=== PATIENT | male | born 1960 | race African-American/Black ===

== ENCOUNTER 2019-07-15 08:06 | Inpatient (IN) ==
[2019-07-15] MEDS ORDERED: DEXTROSE 10% 25 GM/250 ML BAG IV PRN (08:45)
[2019-07-15] MEDS ORDERED: DEXTROSE 50% 25 GM/50 ML VIAL IV PRN (08:45)
[2019-07-15] MEDS ORDERED: CEFUROXIME INJ 1,500 MG in SYRINGE 1 EACH IV ONE (08:45)
[2019-07-15] MEDS ORDERED: GLUCAGON 1 MG VIAL IM PRN ×2 (08:45)
[2019-07-15] MEDS ORDERED: ZALEPLON 5 MG CAPSULE PO PRN (08:49)
[2019-07-15 09:18] LABS: Basophils % 0.6 % (0.0-0.8); Eosinophils # 0.1 10*3/uL (0.0-0.87); Eosinophils % 1.5 % (0.00-10.9); Hematocrit 40.5 VOL% (42.0-52.0); Hemoglobin 12.8 GM/DL (14.0-18.0); Lymphocytes # 0.7 10*3/uL (1.4-4.0); Lymphocytes % 21.2 % (21.2-54.2); Mean Corpuscular HGB Conc 31.6 GM/DL (32-36); Mean Corpuscular Volume 90.2 FL (87-102); Mean Platelet Volume 11.9 FL (9.6-12.0); Monocytes % 4.9 % (1.7-12.7); Neutrophils % 71.8 % (38.7-73.9); Platelet Count 138 T/CUMM (130-400); Red Blood Count 4.49 MC/CUMM (3.8-5.5); White Blood Count 3.4 T/CUMM (4-12)
[2019-07-15 09:40] LABS: Albumin 3.2 G/DL (3.4-5.0); Calcium 9.3 MG/DL (8.5-10.1); Osmolality,Calculated 279.3 MOS/KG (273-304); Total Protein 7.2 G/DL (6.4-8.3)
[2019-07-15 10:04] LABS: ABG Base Excess -1.6 MMOL/L (-2.5-2.5); ABG Oxygen Saturation 94.7 % (95-100); ABG PCO2 35.6 MM HG (35-48); ABG PH 7.409 (7.35-7.45); ABG PO2 75.4 MM HG (80-95); ABG TCO2 19.8 MMOL/L (23-27)
[2019-07-15] MEDS: CHLORHEXIDINE 0.12% ORAL RINSE 60 ML BOTTLE SWISH/SPIT SCH ×2 (10:13→21:45)
[2019-07-15] MEDS: ASPIRIN EC 81 MG TABLET PO SCH (10:13)
[2019-07-15] MEDS: SODIUM CHLORIDE 0.9% 1,000 ML IV SCH (10:13)
[2019-07-15] MEDS: LISINOPRIL 20 MG TABLET PO SCH (10:13)
[2019-07-15] MEDS: MULTIVITAMIN (CENTRUM) TABLET PO SCH (10:13)
[2019-07-15] MEDS: METOPROLOL SUCCINATE XL 25 MG TABLET PO SCH (10:14)
[2019-07-15] MEDS: CHLORHEXIDINE 4% SOLN 118 ML BOTTLE TOP SCH ×2 (16:57→21:45)
[2019-07-16] MEDS ORDERED: PAPAVERINE 60 MG/2 ML VIAL ONE (04:22)
[2019-07-16] MEDS ORDERED: VANCOMYCIN 1,000 MG VIAL ONE ×2 (04:22→17:57)
[2019-07-16] MEDS: CHLORHEXIDINE 4% SOLN 118 ML BOTTLE TOP SCH (04:30)
[2019-07-16] MEDS ORDERED: FAMOTIDINE 20 MG TABLET PO ONE (06:00)
[2019-07-16] MEDS ORDERED: CEFUROXIME INJ 1,500 MG in SYRINGE 1 EACH IV ONE (06:00)
[2019-07-16] MEDS ORDERED: DIAZEPAM 5 MG TABLET PO ONE (06:00)
[2019-07-16] MEDS: METOPROLOL SUCCINATE XL 25 MG TABLET PO SCH ×2 (06:00→09:00)
[2019-07-16] MEDS: LISINOPRIL 20 MG TABLET PO SCH ×2 (06:01→09:00)
[2019-07-16] MEDS ORDERED: HEPARIN/NACL 0.9% 2 UNITS/ML 500 ML IV ONE (06:02)
[2019-07-16] MEDS ORDERED: MIDAZOLAM 10 MG/2 ML VIAL ONE ×2 (06:03→19:08)
[2019-07-16] MEDS ORDERED: ePHEDrine 50 MG/ML AMP ONE (06:03)
[2019-07-16 07:45] LABS: ABG Base Excess -1.9 MMOL/L (-2.5-2.5); ABG HCO3 22.8 MMOL/L (20-26); ABG Oxygen Saturation 99.1 % (95-100); ABG PCO2 38.4 MM HG (35-48); ABG PH 7.382 (7.35-7.45); ABG TCO2 20.4 MMOL/L (23-27); Glucose Heart Surgery 80 MG/DL (74-106); Hemoglobin Heart Surgery 11.7 G/DL (14.0-18.0); Ionized Calcium Arterial 1.24 MMOL/L (1.21-1.46); PCO2 Patient Temp Arterial 38.4 MMHG; PH Patient Temp Arterial 7.382; Patient Temperature 37 CELCIUS; Potassium Heart/CVR 4.5 MMOL/L (3.5-5.1); Sodium Heart/CVR 136 MMOL/L (135-145)
[2019-07-16] MEDS ORDERED: VANCOMYCIN 500 MG VIAL ONE (08:13)
[2019-07-16] MEDS ORDERED: PHENYLEPHRINE DRIP 40 MG/250 ML PREMIX IV ONE (08:22)
[2019-07-16] MEDS ORDERED: SODIUM BICARBONATE 50 MEQ/50 ML VIAL IV ONE ×4 (08:22→19:08)
[2019-07-16] MEDS ORDERED: NITROPRUSSIDE 50 MG/2 ML VIAL ONE (08:22)
[2019-07-16] MEDS ORDERED: CALCIUM CHLORIDE 1,000 MG/10 ML SYRINGE IV ONE (08:22)
[2019-07-16] MEDS ORDERED: POTASSIUM CHLORIDE RIDER 100 ML IV ONE (08:23)
[2019-07-16] MEDS: ASPIRIN EC 81 MG TABLET PO SCH (09:00)
[2019-07-16] MEDS: CHLORHEXIDINE 0.12% ORAL RINSE 60 ML BOTTLE SWISH/SPIT SCH ×2 (09:00→20:23)
[2019-07-16] MEDS: SODIUM CHLORIDE 0.9% 1,000 ML IV SCH (09:00)
[2019-07-16] MEDS: MULTIVITAMIN (CENTRUM) TABLET PO SCH (09:00)
[2019-07-16 09:21] LABS: Hematocrit Heart Surgery 23.6 PERCENT (42-52); Hemoglobin Heart Surgery 7.6 G/DL (14.0-18.0); PCO2 Patient Temp Venous 30.2 MM HG; PH Patient Temp Venous 7.455; PO2 Patient Temp Venous 40.7 MM HG; Potassium Heart/CVR 5.1 MMOL/L (3.5-5.1); VBG HCO3 22.6 MEQ/L (24-28); VBG Oxygen Saturation 85.5 %; VBG PCO2 36.6 MMHG (41-51); VBG PH 7.397; VBG PO2 53.4 MMHG (17-40)
[2019-07-16 09:57] LABS: Hematocrit Heart Surgery 30.4 PERCENT (42-52); Hemoglobin Heart Surgery 9.8 G/DL (14.0-18.0); PCO2 Patient Temp Venous 30.4 MM HG; PH Patient Temp Venous 7.49; PO2 Patient Temp Venous 40.4 MM HG; Potassium Heart/CVR 5.5 MMOL/L (3.5-5.1); VBG Base Excess 0.4 MEQ/L (0-4); VBG HCO3 24.5 MEQ/L (24-28); VBG Oxygen Saturation 81.3 %; VBG PCO2 33.5 MMHG (41-51); VBG PH 7.46; VBG PO2 46.4 MMHG (17-40)
[2019-07-16] MEDS ORDERED: ALBUMIN 25% 25 GM/100 ML VIAL IV ONE (10:48)
[2019-07-16] MEDS ORDERED: MAGNESIUM SULFATE 5 GM/10 ML VIAL IV ONE (10:48)
[2019-07-16] MEDS ORDERED: PROTAMINE SULFATE 250 MG/25 ML VIAL IV ONE (10:48)
[2019-07-16] MEDS ORDERED: DEXTROSE 5% KCL 20 MEQ 20 MEQ/1,000 ML BAG IV ONE (10:48)
[2019-07-16] MEDS ORDERED: LIDOCAINE 2% 5 ML VIAL ONE ×3 (10:48→19:07)
[2019-07-16] MEDS ORDERED: HEPARIN 10,000 UNIT/10 ML VIAL ONE (10:48)
[2019-07-16] MEDS ORDERED: MANNITOL 100 GM/500 ML BAG IV ONE (10:48)
[2019-07-16] MEDS ORDERED: FUROSEMIDE 20 MG/2 ML VIAL ONE (10:49)
[2019-07-16] MEDS ORDERED: methylPREDNISolone SOD SUC 1,000 MG/8 ML VIAL ONE (10:49)
[2019-07-16 10:50] LABS: ABG Base Excess -2.3 MMOL/L (-2.5-2.5); ABG HCO3 22.5 MMOL/L (20-26); ABG Oxygen Saturation 99.9 % (95-100); ABG PCO2 40.2 MM HG (35-48); ABG PH 7.364 (7.35-7.45); ABG TCO2 21.1 MMOL/L (23-27); Glucose Heart Surgery 142 MG/DL (74-106); Hematocrit Heart Surgery 29.2 PERCENT (42-52); Hemoglobin Heart Surgery 9.4 G/DL (14.0-18.0); Ionized Calcium Arterial 1.48 MMOL/L (1.21-1.46); PCO2 Patient Temp Arterial 40.2 MMHG; PH Patient Temp Arterial 7.364; Patient Temperature 37 CELCIUS; Potassium Heart/CVR 4.6 MMOL/L (3.5-5.1); Sodium Heart/CVR 135 MMOL/L (135-145)
[2019-07-16] MEDS ORDERED: DOBUTamine 500 MG/250 ML PREMIX IV ONE ×3 (11:18→19:07)
[2019-07-16] MEDS: SODIUM CHLORIDE 0.45% 1,000 ML IV SCH ×2 (11:40)
[2019-07-16] MEDS ORDERED: DOBUTamine 500 MG/250 ML PREMIX IV PRN (11:40)
[2019-07-16] MEDS ORDERED: MIDAZOLAM 2 MG/2 ML VIAL IV PRN (11:48)
[2019-07-16] MEDS ORDERED: MIDAZOLAM 10 MG/2 ML VIAL IV PRN (11:48)
[2019-07-16] MEDS ORDERED: INSULIN REGULAR 100 UNIT/ML IV ONE (11:48)
[2019-07-16] MEDS ORDERED: MAGNESIUM SULF RIDER 2 GM in PREMIX 1 EACH IV PRN (11:48)
[2019-07-16] MEDS ORDERED: NITROPRUSSIDE 100 MG in DEXTROSE 5% 250 ML IV PRN (11:48)
[2019-07-16] MEDS ORDERED: LACTATED RINGERS 250 ML IV PRN (11:48)
[2019-07-16] MEDS ORDERED: DEXTROSE 10% 250 ML BAG IV PRN ×2 (11:48)
[2019-07-16] MEDS ORDERED: POTASSIUM CHLORIDE RIDER 10 MEQ in PREMIX 1 EACH IV PRN (11:48)
[2019-07-16] MEDS ORDERED: ONDANSETRON 4 MG/2 ML VIAL IV PRN (11:48)
[2019-07-16] MEDS ORDERED: VECURONIUM 10 MG VIAL IV PRN ×2 (11:48)
[2019-07-16] MEDS ORDERED: PHENYLEPHRINE DRIP 40 MG/250 ML PREMIX IV PRN (11:48)
[2019-07-16] MEDS ORDERED: CALCIUM CHLORIDE 1,000 MG/10 ML SYRINGE IV PRN (11:48)
[2019-07-16] MEDS ORDERED: MAGNESIUM SULF RIDER 4 GM in PREMIX 1 EACH IV PRN (11:48)
[2019-07-16] MEDS ORDERED: MORPHINE 10 MG/1 ML VIAL IV PRN (11:48)
[2019-07-16] MEDS ORDERED: ACETAMINOPHEN 650 MG SUPP RECTAL PRN (11:48)
[2019-07-16] MEDS ORDERED: INSULIN REGULAR 100 UNIT/ML IV PRN (11:48)
[2019-07-16] MEDS ORDERED: CALCIUM CHLORIDE 1,000 MG/10 ML VIAL IV ONE ×2 (11:54→19:07)
[2019-07-16] MEDS ORDERED: SEVOFLURANE 1 UNIT/15 MINUTE INH ONE ×2 (11:54→19:08)
[2019-07-16] MEDS ORDERED: PHENYLEPHRINE DRIP 20 MG/250 ML PREMIX IV ONE (11:54)
[2019-07-16] MEDS ORDERED: NITROGLYCERIN DRIP 50 MG/250 ML BOTTLE IV ONE ×2 (11:54→11:55)
[2019-07-16] MEDS ORDERED: PROPOFOL 200 MG/20 ML VIAL IV ONE (11:54)
[2019-07-16] MEDS ORDERED: METOPROLOL TARTRATE 5 MG/5 ML VIAL IV ONE (11:55)
[2019-07-16] MEDS ORDERED: PROTAMINE SULFATE 50 MG/5 ML VIAL IV ONE ×2 (11:55→12:44)
[2019-07-16] MEDS ORDERED: SODIUM CHLORIDE 0.9% 1,000 ML IV ONE (11:55)
[2019-07-16] MEDS ORDERED: AMINOCAPROIC ACID 5,000 MG/20 ML VIAL ONE (11:55)
[2019-07-16] MEDS ORDERED: SODIUM CHLORIDE 0.9% 250 ML IV ONE ×2 (11:55→19:09)
[2019-07-16] MEDS ORDERED: ETOMIDATE 40 MG/20 ML VIAL IV ONE ×2 (11:55→19:09)
[2019-07-16] MEDS ORDERED: LACTATED RINGERS 1,000 ML IV ONE (11:55)
[2019-07-16 11:59] LABS: ABG Base Excess -0.9 MMOL/L (-2.5-2.5); ABG HCO3 23.7 MMOL/L (20-26); ABG Oxygen Saturation 99.9 % (95-100); ABG PCO2 42.2 MM HG (35-48); ABG PH 7.369 (7.35-7.45); ABG TCO2 22.1 MMOL/L (23-27); Glucose Heart Surgery 113 MG/DL (74-106); Hematocrit Heart Surgery 31.5 PERCENT (42-52); Hemoglobin Heart Surgery 10.2 G/DL (14.0-18.0)
[2019-07-16] MEDS ORDERED: INSULIN REGULAR DRIP 100 ML IV SCH (12:00)
[2019-07-16 12:01] LABS: Basophils % 0.4 % (0.0-0.8); Eosinophils % 0.3 % (0.00-10.9); Hematocrit 30.7 VOL% (42.0-52.0); Immature Granulocytes % 0.9 %; Lymphocytes # 0.6 10*3/uL (1.4-4.0); Mean Corpuscular HGB Conc 32.6 GM/DL (32-36); Mean Corpuscular Volume 87.5 FL (87-102); Mean Platelet Volume 11.7 FL (9.6-12.0); Monocytes % 4.3 % (1.7-12.7); Neutrophils % 89.1 % (38.7-73.9); Platelet Count 109 T/CUMM (130-400); Red Blood Count 3.51 MC/CUMM (3.8-5.5); Red Cell Distribution Width 14.9 % (9.3-17.3); White Blood Count 11.3 T/CUMM (4-12)
[2019-07-16 12:09] LABS: INR 1.4; PT Patient Result 15.1 SECS (9.6-12.2); Partial Thromboplastin Time 32.1 SECS (20.8-36.0)
[2019-07-16] MEDS: POTASSIUM CHLORIDE RIDER 20 MEQ in PREMIX 1 EACH IV PRN ×2 (12:10→21:18)
[2019-07-16] MEDS ORDERED: NITROGLYCERIN DRIP 50 MG/250 ML BOTTLE IV PRN (12:10)
[2019-07-16 12:17] LABS: Albumin 2.6 G/DL (3.4-5.0); Bilirubin,Total 1.9 MG/DL (0.2-1.0); Calcium 8.4 MG/DL (8.5-10.1); Osmolality,Calculated 279.4 MOS/KG (273-304); Total Protein 5.3 G/DL (6.4-8.3)
[2019-07-16 12:22] LABS: CKMB % 5.8 %
[2019-07-16 12:34] LABS: Troponin I 5.56 NG/ML (0.00-0.045)
[2019-07-16 13:31] LABS: ABG Base Excess -3.5 MMOL/L (-2.5-2.5); ABG HCO3 21.5 MMOL/L (20-26); ABG Oxygen Saturation 98.6 % (95-100); ABG PCO2 43.2 MM HG (35-48); ABG PH 7.324 (7.35-7.45); ABG TCO2 20.6 MMOL/L (23-27); Glucose Heart Surgery 131 MG/DL (74-106); Hematocrit Heart Surgery 31.3 PERCENT (42-52); Hemoglobin Heart Surgery 10.1 G/DL (14.0-18.0); Potassium Heart/CVR 4.6 MMOL/L (3.5-5.1)
[2019-07-16] MEDS: KETOROLAC 30 MG/1 ML VIAL IV SCH ×2 (13:47→19:45)
[2019-07-16 15:27] LABS: ABG HCO3 19.5 MMOL/L (20-26); ABG Oxygen Saturation 98.8 % (95-100); ABG PCO2 47.3 MM HG (35-48); ABG PH 7.258 (7.35-7.45); ABG TCO2 19.6 MMOL/L (23-27); Glucose Heart Surgery 183 MG/DL (74-106); Hematocrit Heart Surgery 30.3 PERCENT (42-52); Hemoglobin Heart Surgery 9.8 G/DL (14.0-18.0); Potassium Heart/CVR 4.6 MMOL/L (3.5-5.1)
[2019-07-16] MEDS: ALBUMIN 5% 12.5 GM in PREMIX 1 EACH IV PRN (16:20)
[2019-07-16 16:54] LABS: Hematocrit Heart Surgery 25.8 PERCENT (42-52); Hemoglobin Heart Surgery 8.3 G/DL (14.0-18.0); PH Patient Temp Venous 7.299; PO2 Patient Temp Venous 28.2 MM HG; Potassium Heart/CVR 4.2 MMOL/L (3.5-5.1); VBG Base Excess 10.3 MEQ/L (0-4); VBG HCO3 33.1 MEQ/L (24-28); VBG Oxygen Saturation 37.9 %; VBG PH 7.299; VBG PO2 28.2 MMHG (17-40)
[2019-07-16 17:58] LABS: ABG Base Excess -8.5 MMOL/L (-2.5-2.5); ABG HCO3 17.6 MMOL/L (20-26); ABG Oxygen Saturation 99.8 % (95-100); ABG PH 7.276 (7.35-7.45); ABG TCO2 16.7 MMOL/L (23-27); Glucose Heart Surgery 210 MG/DL (74-106); Ionized Calcium Arterial 1.11 MMOL/L (1.21-1.46); PH Patient Temp Arterial 7.276; Patient Temperature 37 CELCIUS; Potassium Heart/CVR 4.2 MMOL/L (3.5-5.1); Sodium Heart/CVR 140 MMOL/L (135-145)
[2019-07-16] MEDS ORDERED: PHENYLEPHRINE 10 MG/1 ML VIAL IV ONE (19:09)
[2019-07-16] MEDS ORDERED: ROCURONIUM 100 MG/10 ML VIAL IV ONE (19:09)
[2019-07-16] MEDS ORDERED: PHENYLEPHRINE 1 MG/10 ML SYRINGE IV ONE (19:09)
[2019-07-16 19:12] LABS: ABG Base Excess -4.7 MMOL/L (-2.5-2.5); ABG HCO3 20.5 MMOL/L (20-26); ABG PCO2 40.2 MM HG (35-48); ABG PH 7.324 (7.35-7.45); Glucose Heart Surgery 189 MG/DL (74-106); Hematocrit Heart Surgery 21.3 PERCENT (42-52); Hemoglobin Heart Surgery 6.8 G/DL (14.0-18.0); Potassium Heart/CVR 4.1 MMOL/L (3.5-5.1)
[2019-07-16 19:14] LABS: Basophils % 0.1 % (0.0-0.8); Hematocrit 20.9 VOL% (42.0-52.0); Hemoglobin 6.6 GM/DL (14.0-18.0); Immature Granulocytes % 0.6 %; Immature Granulocytes Absolute 0.05 #; Lymphocytes # 0.3 10*3/uL (1.4-4.0); Lymphocytes % 4.2 % (21.2-54.2); Mean Corpuscular HGB Conc 31.6 GM/DL (32-36); Mean Corpuscular Volume 91.3 FL (87-102); Mean Platelet Volume 11.5 FL (9.6-12.0); Monocytes % 4.4 % (1.7-12.7); Neutrophils % 90.7 % (38.7-73.9); Platelet Count 89 T/CUMM (130-400); Red Blood Count 2.29 MC/CUMM (3.8-5.5); Red Cell Distribution Width 14.7 % (9.3-17.3); White Blood Count 7.9 T/CUMM (4-12)
[2019-07-16 19:23] LABS: INR 1.5; PT Patient Result 16.1 SECS (9.6-12.2); Partial Thromboplastin Time 32.5 SECS (20.8-36.0)
[2019-07-16] MEDS ORDERED: SODIUM CHLORIDE 0.9% 1,000 ML IV PRN (19:24)
[2019-07-16 19:35] LABS: Band Neutrophils 1 % (0-10); Lymphocytes 4 % (20-55); Segmented Neutrophils 94 % (50-85); Total Cells Counted 100
[2019-07-16 19:36] LABS: Hypochromasia 1+; Platelet Estimate Decreased
[2019-07-16 19:39] LABS: CKMB % 5.1 %
[2019-07-16 19:40] LABS: Albumin 2.4 G/DL (3.4-5.0); Bilirubin,Total 1.6 MG/DL (0.2-1.0); Calcium 7.8 MG/DL (8.5-10.1); Osmolality,Calculated 296.6 MOS/KG (273-304); Total Protein 4.4 G/DL (6.4-8.3)
[2019-07-16 19:41] LABS: Troponin I 11.9 NG/ML (0.00-0.045)
[2019-07-16] MEDS: CEFUROXIME INJ 1,500 MG in SYRINGE 1 EACH IV SCH (19:58)
[2019-07-16 21:09] LABS: ABG Base Excess -1.9 MMOL/L (-2.5-2.5); ABG HCO3 22.5 MMOL/L (20-26); ABG Oxygen Saturation 98.5 % (95-100); ABG PCO2 36.4 MM HG (35-48); ABG PH 7.408 (7.35-7.45); ABG PO2 199.7 MM HG (80-95); ABG TCO2 23.6 MMOL/L (23-27); Glucose Heart Surgery 177 MG/DL (74-106); Hemoglobin Heart Surgery 9.9 G/DL (14.0-18.0); Potassium Heart/CVR 4.4 MMOL/L (3.5-5.1)
[2019-07-16 22:17] LABS: ABG Base Excess -1.9 MMOL/L (-2.5-2.5); ABG Oxygen Saturation 98.7 % (95-100); ABG PH 7.378 (7.35-7.45); ABG PO2 185.7 MM HG (80-95); ABG TCO2 24.3 MMOL/L (23-27); Glucose Heart Surgery 160 MG/DL (74-106); Hemoglobin Heart Surgery 9.8 G/DL (14.0-18.0); Potassium Heart/CVR 4.6 MMOL/L (3.5-5.1)
[2019-07-17 00:15] LABS: Glucose Heart Surgery 138 MG/DL (74-106); Hemoglobin Heart Surgery 10.1 G/DL (14.0-18.0); Potassium Heart/CVR 4.3 MMOL/L (3.5-5.1); Sodium Heart/CVR 139 MMOL/L (135-145); VBG Base Excess 0.7 MEQ/L (0-4); VBG HCO3 26.1 MEQ/L (24-28); VBG Oxygen Saturation 60.6 %; VBG PCO2 45.3 MMHG (41-51); VBG PH 7.379; VBG PO2 33.6 MMHG (17-40)
[2019-07-17] MEDS: POTASSIUM CHLORIDE RIDER 20 MEQ in PREMIX 1 EACH IV PRN ×2 (00:25→06:36)
[2019-07-17] MEDS: ALBUMIN 5% 12.5 GM in PREMIX 1 EACH IV PRN (02:06)
[2019-07-17 03:02] LABS: ABG Base Excess -0.2 MMOL/L (-2.5-2.5); ABG HCO3 24.3 MMOL/L (20-26); ABG Oxygen Saturation 99.7 % (95-100); ABG PCO2 39.1 MM HG (35-48); ABG PH 7.404 (7.35-7.45); ABG TCO2 22.4 MMOL/L (23-27); Glucose Heart Surgery 127 MG/DL (74-106); Hematocrit Heart Surgery 28.5 PERCENT (42-52); Hemoglobin Heart Surgery 9.2 G/DL (14.0-18.0); Potassium Heart/CVR 4.7 MMOL/L (3.5-5.1)
[2019-07-17] MEDS ORDERED: FUROSEMIDE 40 MG/4 ML VIAL IV ONE (04:17)
[2019-07-17 05:03] LABS: ABG Base Excess 1.6 MMOL/L (-2.5-2.5); ABG HCO3 25.8 MMOL/L (20-26); ABG Oxygen Saturation 99.8 % (95-100); ABG PCO2 38.1 MM HG (35-48); ABG PH 7.436 (7.35-7.45); ABG TCO2 23.3 MMOL/L (23-27); Glucose Heart Surgery 116 MG/DL (74-106); Hematocrit Heart Surgery 30.7 PERCENT (42-52); Hemoglobin Heart Surgery 9.9 G/DL (14.0-18.0); Potassium Heart/CVR 4.5 MMOL/L (3.5-5.1)
[2019-07-17 05:11] LABS: Basophils % 0.2 % (0.0-0.8); Hematocrit 29.1 VOL% (42.0-52.0); Hemoglobin 9.5 GM/DL (14.0-18.0); Immature Granulocytes % 0.6 %; Immature Granulocytes Absolute 0.06 #; Lymphocytes # 0.5 10*3/uL (1.4-4.0); Lymphocytes % 4.6 % (21.2-54.2); Mean Corpuscular HGB Conc 32.6 GM/DL (32-36); Mean Corpuscular Volume 88.2 FL (87-102); Mean Platelet Volume 12.7 FL (9.6-12.0); Monocytes % 5.4 % (1.7-12.7); Neutrophils % 89.2 % (38.7-73.9); Red Cell Distribution Width 14.3 % (9.3-17.3); White Blood Count 10.5 T/CUMM (4-12)
[2019-07-17 05:13] LABS: Platelet Count 81 T/CUMM (130-400)
[2019-07-17 05:32] LABS: Band Neutrophils 2 % (0-10); Hypochromasia 1+; Lymphocytes 7 % (20-55); Platelet Estimate Decreased; Segmented Neutrophils 89 % (50-85); Total Cells Counted 100
[2019-07-17 05:38] LABS: Albumin 2.9 G/DL (3.4-5.0); Bilirubin,Direct 0.44 MG/DL (0.0-0.20); Bilirubin,Total 1.1 MG/DL (0.2-1.0); Calcium 8.2 MG/DL (8.5-10.1); Osmolality,Calculated 289.8 MOS/KG (273-304); Total Protein 5.6 G/DL (6.4-8.3)
[2019-07-17] MEDS: MORPHINE 4 MG/1 ML VIAL IV PRN ×4 (05:49→19:45)
[2019-07-17 05:50] LABS: CKMB % 3.8 %
[2019-07-17 05:52] LABS: Troponin I 8.1 NG/ML (0.00-0.045)
[2019-07-17] MEDS ORDERED: FERROUS SULFATE 325 MG TABLET PO PRN (06:00)
[2019-07-17] MEDS ORDERED: GLUCAGON 1 MG VIAL IM PRN (06:03)
[2019-07-17 06:17] LABS: ABG Base Excess 2.5 MMOL/L (-2.5-2.5); ABG HCO3 26.7 MMOL/L (20-26); ABG Oxygen Saturation 99.7 % (95-100); ABG PCO2 38.7 MM HG (35-48); ABG PH 7.445 (7.35-7.45); ABG TCO2 24.1 MMOL/L (23-27); Glucose Heart Surgery 116 MG/DL (74-106); Hematocrit Heart Surgery 31.1 PERCENT (42-52); Potassium Heart/CVR 4.2 MMOL/L (3.5-5.1)
[2019-07-17] MEDS: CEFUROXIME INJ 1,500 MG in SYRINGE 1 EACH IV SCH ×2 (08:46→19:44)
[2019-07-17] MEDS: INSULIN REGULAR 100 UNIT/ML SUBCUT SCH ×4 (08:47→21:08)
[2019-07-17] MEDS: LISINOPRIL 20 MG TABLET PO SCH (08:47)
[2019-07-17] MEDS: METOPROLOL SUCCINATE XL 25 MG TABLET PO SCH (08:47)
[2019-07-17] MEDS: DOCUSATE SODIUM 100 MG CAPSULE PO SCH ×2 (08:48→20:32)
[2019-07-17] MEDS: PANTOPRAZOLE 40 MG TABLET PO SCH (08:48)
[2019-07-17] MEDS: CHLORHEXIDINE 0.12% ORAL RINSE 60 ML BOTTLE SWISH/SPIT SCH ×2 (09:03→20:32)
[2019-07-17 12:24] LABS: CKMB % 3.4 %
[2019-07-17 12:28] LABS: Troponin I 8.63 NG/ML (0.00-0.045)
[2019-07-17] MEDS: SODIUM CHLORIDE 0.45% 1,000 ML IV SCH ×2 (16:38→16:41)
[2019-07-18] MEDS: MORPHINE 4 MG/1 ML VIAL IV PRN (02:29)
[2019-07-18] MEDS: INSULIN REGULAR 100 UNIT/ML SUBCUT SCH ×3 (05:22→08:38)
[2019-07-18 05:24] LABS: Basophils % 0.1 % (0.0-0.8); Eosinophils % 0.1 % (0.00-10.9); Hemoglobin 9.7 GM/DL (14.0-18.0); Immature Granulocytes % 0.7 %; Lymphocytes # 0.9 10*3/uL (1.4-4.0); Lymphocytes % 6.6 % (21.2-54.2); Mean Corpuscular HGB Conc 32.3 GM/DL (32-36); Mean Corpuscular Volume 89.6 FL (87-102); Mean Platelet Volume 12.9 FL (9.6-12.0); Monocytes % 5.8 % (1.7-12.7); Neutrophils % 86.7 % (38.7-73.9); Platelet Count 116 T/CUMM (130-400); Red Blood Count 3.35 MC/CUMM (3.8-5.5); Red Cell Distribution Width 14.9 % (9.3-17.3)
[2019-07-18 05:59] LABS: Albumin 2.7 G/DL (3.4-5.0); Bilirubin,Direct 0.4 MG/DL (0.0-0.20); Bilirubin,Total 1.2 MG/DL (0.2-1.0); Calcium 8.6 MG/DL (8.5-10.1); Osmolality,Calculated 275.8 MOS/KG (273-304); Total Protein 5.8 G/DL (6.4-8.3)
[2019-07-18] MEDS: LISINOPRIL 20 MG TABLET PO SCH (08:38)
[2019-07-18] MEDS: DOCUSATE SODIUM 100 MG CAPSULE PO SCH (08:38)
[2019-07-18] MEDS: PANTOPRAZOLE 40 MG TABLET PO SCH (08:39)
[2019-07-18] MEDS: CHLORHEXIDINE 0.12% ORAL RINSE 60 ML BOTTLE SWISH/SPIT SCH ×2 (08:39→21:44)
[2019-07-18] MEDS: METOPROLOL SUCCINATE XL 25 MG TABLET PO SCH (08:39)
[2019-07-18] MEDS ORDERED: FUROSEMIDE 40 MG/4 ML VIAL IV ONE (09:19)
[2019-07-18] MEDS ORDERED: GLUCAGON 1 MG VIAL IM PRN ×2 (10:53)
[2019-07-18] MEDS ORDERED: POTASSIUM CHLORIDE 20 MEQ TABLET PO PRN (10:53)
[2019-07-18] MEDS ORDERED: DEXTROSE 50% 25 GM/50 ML VIAL IV PRN ×2 (10:53)
[2019-07-18] MEDS ORDERED: ONDANSETRON 4 MG/2 ML VIAL IV PRN (10:53)
[2019-07-18] MEDS ORDERED: SODIUM CHLOR 0.45% KCL 20 MEQ 20 MEQ/1,000 ML BAG IV SCH (10:53)
[2019-07-18] MEDS ORDERED: ALUMINUM/MAGNES/SIMETH MAX STR 30 ML UDCUP PO PRN (10:53)
[2019-07-18] MEDS ORDERED: MAGNESIUM HYDROXIDE SUSP 30 ML UDCUP PO PRN (10:53)
[2019-07-18] MEDS ORDERED: ZALEPLON 5 MG CAPSULE PO PRN (10:53)
[2019-07-18] MEDS ORDERED: MAGNESIUM SULF RIDER 2 GM in PREMIX 1 EACH IV PRN (10:53)
[2019-07-18] MEDS ORDERED: ACETAMINOPHEN 325 MG TABLET PO PRN (10:53)
[2019-07-18] MEDS ORDERED: MORPHINE 4 MG/1 ML VIAL IV PRN (10:53)
[2019-07-18] MEDS ORDERED: MAGNESIUM SULF RIDER 4 GM in PREMIX 1 EACH IV PRN (10:53)
[2019-07-18] MEDS: KETOROLAC 15 MG/1 ML VIAL IV SCH ×3 (12:14→23:15)
[2019-07-18] MEDS ORDERED: ALBUTEROL/IPRATROPIUM 3 ML NEB RESP TX SCH (13:00)
[2019-07-18] MEDS ORDERED: HYDROcodone/CHLORPHENIRAMINE ER 5 ML UDCUP PO PRN (21:10)
[2019-07-19 04:34] LABS: Basophils % 0.2 % (0.0-0.8); Eosinophils % 0.1 % (0.00-10.9); Immature Granulocytes % 0.6 %; Immature Granulocytes Absolute 0.08 #; Lymphocytes % 7.2 % (21.2-54.2); Mean Corpuscular HGB Conc 32.3 GM/DL (32-36); Mean Corpuscular Volume 89.6 FL (87-102); Mean Platelet Volume 12.8 FL (9.6-12.0); Monocytes % 6.5 % (1.7-12.7); Neutrophils % 85.4 % (38.7-73.9); Platelet Count 128 T/CUMM (130-400); Red Blood Count 3.46 MC/CUMM (3.8-5.5); White Blood Count 13.2 T/CUMM (4-12)
[2019-07-19 05:05] LABS: Alanine Aminotransferase 17 U/L (16-61); Albumin 2.6 G/DL (3.4-5.0); Alkaline Phosphatase 65 U/L (45-117); Aspartate Amino Transferase 32 U/L (0-37); Bilirubin,Indirect 1.1 MG/DL (0.0-1.0); Blood Urea Nitrogen 25 MG/DL (7-18); Calcium 8.7 MG/DL (8.5-10.1); Estimated Glom Filtration Rate 84 ML/MIN; Glucose 100 MG/DL (74-106); Total Protein 5.8 G/DL (6.4-8.3)
[2019-07-19] MEDS: KETOROLAC 15 MG/1 ML VIAL IV SCH ×4 (05:42→23:23)
[2019-07-19] MEDS ORDERED: FUROSEMIDE 40 MG/4 ML VIAL IV ONE (06:00)
[2019-07-19] MEDS: oxyCODONE/ACETAMINOPHEN 5-325 MG TABLET PO PRN ×3 (08:35→23:28)
[2019-07-19] MEDS: METOPROLOL SUCCINATE XL 25 MG TABLET PO SCH (08:36)
[2019-07-19] MEDS: ASPIRIN EC 325 MG TABLET PO SCH (08:36)
[2019-07-19] MEDS: DOCUSATE SODIUM 100 MG CAPSULE PO SCH (08:36)
[2019-07-19] MEDS: LISINOPRIL 20 MG TABLET PO SCH (08:36)
[2019-07-19] MEDS: PANTOPRAZOLE 40 MG TABLET PO SCH (08:37)
[2019-07-19] MEDS: FERROUS SULFATE 325 MG TABLET PO SCH (08:37)
[2019-07-19] MEDS: CHLORHEXIDINE 0.12% ORAL RINSE 60 ML BOTTLE SWISH/SPIT SCH ×2 (08:37→21:16)
[2019-07-20 05:32] LABS: Basophils % 0.1 % (0.0-0.8); Eosinophils # 0.1 10*3/uL (0.0-0.87); Eosinophils % 0.7 % (0.00-10.9); Hematocrit 27.3 VOL% (42.0-52.0); Hemoglobin 8.8 GM/DL (14.0-18.0); Immature Granulocytes % 0.4 %; Immature Granulocytes Absolute 0.03 #; Lymphocytes # 0.8 10*3/uL (1.4-4.0); Lymphocytes % 9.2 % (21.2-54.2); Mean Corpuscular HGB Conc 32.2 GM/DL (32-36); Mean Corpuscular Volume 88.9 FL (87-102); Mean Platelet Volume 12.2 FL (9.6-12.0); Monocytes % 7.4 % (1.7-12.7); Neutrophils % 82.2 % (38.7-73.9); Platelet Count 125 T/CUMM (130-400); Red Blood Count 3.07 MC/CUMM (3.8-5.5); Red Cell Distribution Width 14.6 % (9.3-17.3); White Blood Count 8.1 T/CUMM (4-12)
[2019-07-20 05:51] LABS: Alanine Aminotransferase 16 U/L (16-61); Albumin 2.5 G/DL (3.4-5.0); Alkaline Phosphatase 65 U/L (45-117); Aspartate Amino Transferase 30 U/L (0-37); Bilirubin,Indirect 0.6 MG/DL (0.0-1.0); Blood Urea Nitrogen 20 MG/DL (7-18); Calcium 8.6 MG/DL (8.5-10.1); Estimated Glom Filtration Rate 101 ML/MIN; Glucose 89 MG/DL (74-106); Osmolality,Calculated 276.7 MOS/KG (273-304); Total Protein 5.6 G/DL (6.4-8.3)
[2019-07-20] MEDS: KETOROLAC 15 MG/1 ML VIAL IV SCH (05:51)
[2019-07-20] MEDS: ASPIRIN EC 325 MG TABLET PO SCH (08:53)
[2019-07-20] MEDS: PANTOPRAZOLE 40 MG TABLET PO SCH (08:53)
[2019-07-20] MEDS: METOPROLOL SUCCINATE XL 25 MG TABLET PO SCH (08:53)
[2019-07-20] MEDS: LISINOPRIL 20 MG TABLET PO SCH (08:53)
[2019-07-20] MEDS: FERROUS SULFATE 325 MG TABLET PO SCH (08:53)
[2019-07-20] MEDS: DOCUSATE SODIUM 100 MG CAPSULE PO SCH (08:53)
[2019-07-20] MEDS: CHLORHEXIDINE 0.12% ORAL RINSE 60 ML BOTTLE SWISH/SPIT SCH (08:55)
[2019-07-20 12:06] VITALS: BP 118/71
== END 2019-07-20 11:40 | disposition home health service (06) | DRG 236 ==
LOC: N.TELES 08:06 → N.CVR 07-16 07:26 → N.ICU 07-17 07:15 → N.TELES 07-18 10:53